=== PATIENT | female | born 1960 | race Caucasian/White ===

== ENCOUNTER 2017-07-06 08:13 | Emergency (ER) | payer OTHER ==
[~2017-07-06] VITALS: Ht 167.6 cm; Wt 90.7 kg
[2017-07-06] MEDS ORDERED: MOBIC15 MG PO (08:24)
[2017-07-06] MEDS ORDERED: SINGULAIR 10 MG10 M1 PO (08:24)
[2017-07-06] MEDS ORDERED: ESCITALOPRAM OX20 MG PO (08:24)
[2017-07-06] MEDS ORDERED: ZOLPIDEM TARTRA10 MG PO (08:25)
[2017-07-06] MEDS ORDERED: TRAZODONE HCL50 MG PO (08:25)
[2017-07-06] MEDS ORDERED: TRAMADOL 50 MG50 MG PO (08:26)
[2017-07-06] MEDS ORDERED: VITAMIN D 5050000 I1 PO (08:26)
[2017-07-06 11:17] VITALS: BP 141/91
== END 2017-07-06 11:17 | disposition home or self-care (01) ==
LOC: ER 08:13
DX: S61.511A Laceration without foreign body of right wrist, initial encounter (principal); M19.90 Unspecified osteoarthritis, unspecified site; F10.99 Alcohol use, unspecified with unspecified alcohol-induced disorder; Z88.1 Allergy status to other antibiotic agents; Z98.890 Other specified postprocedural states; Z88.8 Allergy status to other drugs, medicaments and biological substances; W25.XXXA Contact with sharp glass, initial encounter; Y93.19 Activity, other involving water and watercraft; Y92.89 Other specified places as the place of occurrence of the external cause; Y99.8 Other external cause status